=== PATIENT | male | born 1950 | race Caucasian/White ===

== ENCOUNTER → 2017-02-08 | Outpatient (CLI) | payer MEDICARE, OTHER ==
--- NOTE | 2017-02-08 11:11 | US ---
EXAMINATION TYPE: US carotid duplex BILAT DATE OF EXAM: 02/08/2017 COMPARISON: NONE CLINICAL HISTORY: R42 Postural dizziness. EXAM MEASUREMENTS: RIGHT: Peak Systolic Velocity (PSV) cm/sec ----- Right CCA: 74.2 ----- Right ICA: 80.7 ----- Right ECA: 89.9 ICA/CCA ratio: 1.1 RIGHT: End Diastole cm/sec ----- Right CCA: 32.5 ----- Right ICA: 36.4 ----- Right ECA: 23.3 LEFT: Peak Systolic Velocity (PSV) cm/sec ----- Left CCA: 69.8 ----- Left ICA: 76.2 ----- Left ECA: 74.6 ICA/CCA ratio: 1.1 LEFT: End Diastole cm/sec ----- Left CCA: 24.5 ----- Left ICA: 34.8 ----- Left ECA: 16.4 VERTEBRALS (direction of flow): Right Vertebral: Antegrade Left Vertebral: Antegrade Rhythm: Normal small amount calcified plaque bilateral bulbs. No increase in flow velocities. IMPRESSION: 1. Atherosclerotic plaque bilaterally with no significant hemodynamic stenosis identified.
--- NOTE | 2017-02-08 19:16 | ECHOF ---
Referral Reason:R42 Postural dizziness MEASUREMENTS -------- HEIGHT: 182.9 cm WEIGHT: 99.3 kg BP: 109/68 RVIDd: 3.2 cm (< 3.3) IVSd: 1.3 cm (0.6 - 1.1) LVIDd: 4.2 cm (3.9 - 5.3) LVPWd: 1.2 cm (0.6 - 1.1) IVSs: 1.7 cm LVIDs: 3.3 cm LVPWs: 1.7 cm LA Diam: 3.4 cm (2.7 - 3.8) LAESV Index (A-L): 23.95 ml/m Ao Diam: 3.5 cm (2.0 - 3.7) AV Cusp: 2.2 cm (1.5 - 2.6) MV EXCURSION: 15.618 mm (> 18.000) MV EF SLOPE: 43 mm/s (70 - 150) EPSS: 0.6 cm MV E Jose Luis: 0.61 m/s MV DecT: 219 ms MV A Jose Luis: 0.67 m/s MV E/A Ratio: 0.91 FINDINGS -------- Sinus rhythm. This was a technically good study. The left ventricular size is normal. There is mild concentric left ventricular hypertrophy. Overa ll left ventricular systolic function is normal with, an EF between 55 - 60 %. The right ventricle is normal in size. Normal LA size by volume 22+/-6 ml/m2. The right atrium is normal in size. The aortic valve is trileaflet and appears structurally normal. Trace to mild aortic regurgitation. Mild mitral annular calcification present. There is trace mitral regurgitation. The tricuspid valve appears structurally normal. Trace/mild (physiologic) pulmonic regurgitation. The aortic root size is normal. Normal inferior vena cava with normal inspiratory collapse consistent with estimated right atrial pre ssure of 5 mmHg. There is no pericardial effusion. CONCLUSIONS -------- 1. Sinus rhythm. 2. This was a technically good study. 3. The left ventricular size is normal. 4. There is mild concentric left ventricular hypertrophy. 5. Overall left ventricular systolic function is normal with, an EF between 55 - 60 %. 6. The right ventricle is normal in size. 7. Normal LA size by volume 22+/-6 ml/m2. 8. The right atrium is normal in size. 9. The aortic valve is trileaflet and appears structurally normal. 10. Trace to mild aortic regurgitation. 11. Mild mitral annular calcification present. 12. There is trace mitral regurgitation. 13. The tricuspid valve appears structurally normal. 14. Trace/mild (physiologic) pulmonic regurgitation. 15. The aortic root size is normal. 16. Normal inferior vena cava with normal inspiratory collapse consistent with estimated right atrial pressure of 5 mmHg. 17. There is no pericardial effusion. CODING COMPLIANCE AUDITOR: Vickie Gonzalez RDCS
--- NOTE | 2017-02-08 21:50 | EST ---
EXERCISE STRESS AGE: 66 SEX: Male HT: 6 feet WT: 219 PROTOCOL: Baron. STAGE: III DURATION OF EXERCISE: 10 minutes. HEART RATE REST: 64 BLOOD PRESSURE REST: 109/60 mmHg. MAXIMUM HEART RATE ACHIEVED: 139 MAXIMUM BLOOD PRESSURE: 192/86 85% MPHR: 131 100% MPHR: 154 METS: 11.7 INDICATIONS: Dizzy CLINICAL INFORMATION: Baseline 12-lead ECG shows sinus rhythm with normal FL interval, narrow QRS and normal ST segments. Patient exercised on a Baron protocol for 10 minutes, achieving a peak heart rate of 139 beats per minute with normal blood pressure response to exercise. There was no ECG evidence for ischemia. No arrhythmias were noted. The patient denied any cardiac symptoms. He did complain of tired legs at the end of the procedure. IMPRESSION: Good exercise capacity without any ECG evidence of ischemia or arrhythmia. MMODL / IJN: [id number] /
== END | disposition home or self-care (01) ==
LOC: RADUSMAIN 10:24
PROVIDERS: ATTEND Internal Medicine
DX: I08.0 Rheumatic disorders of both mitral and aortic valves (principal); I70.8 Atherosclerosis of other arteries
CPT/HCPCS: 93017; 93306; 93880

== ENCOUNTER → 2021-01-11 | Outpatient (CLI) | payer MEDICARE, OTHER ==
[2021-01-11 14:30] LABS: Basophils # (A) 0.05 X 10*3/uL (0.00-0.10); Basophils % (A) 0.9 %; Eosinophils # (A) 0.16 X 10*3/uL (0.04-0.35); Eosinophils % (A) 2.9 %; HCT 48.3 % (39.6-50.0); HGB 14.9 g/dL (13.0-17.0); Lymphocytes # (A) 2.22 X 10*3/uL (0.90-5.00); Lymphocytes % (A) 40.2 %; MCH 29.4 pg (27.0-32.0); MCHC 30.8 g/dL (32.0-37.0); MCV 95.3 fL (80.0-97.0); Mean Platelet Volume 9.5 fL (9.5-12.2); Monocytes # (A) 0.57 X 10*3/uL (0.20-1.00); Monocytes % (A) 10.3 %; Neutrophils % (A) 45.3 %; Platelet Count 224 X 10*3/uL (140-440); RBC 5.07 X 10*6/uL (4.40-5.60); RDW 13.5 % (11.5-14.5); WBC 5.52 X 10*3/uL (4.50-10.00)
[2021-01-11 15:03] LABS: ALT 32 U/L (10-49); AST 22 U/L (14-35); African American GFR (CKD) 85.9 (60.0-200.0); Albumin 4.6 g/dL (3.8-4.9); Albumin/Globulin Ratio 1.65 (1.60-3.17); Alkaline Phosphatase 75 U/L (41-126); BUN/Creat Ratio 17.75 Ratio (12.00-20.00); Blood Urea Nitrogen 18.1 mg/dL (9.0-27.0); Calcium 9.8 mg/dL (8.7-10.3); Carbon Dioxide 26.4 mmol/L (20.0-27.5); Chloride 103 mmol/L (96-109); Globulin 2.8 g/dL (1.6-3.3); Glucose 83 mg/dL (70-110); Non-African American GFR(CKD) 74.1 (60.0-200.0); Potassium 4.8 mmol/L (3.5-5.5); Sodium 140 mmol/L (135-145); Total Protein 7.3 g/dL (6.2-8.2)
[2021-01-11 16:13] LABS: C Reactive Protein <0.30 mg/dL (0.00-0.80)
[2021-01-11 17:28] LABS: Gliadin AB IgA, Deaminated NEGATIVE (NEGATIVE); Gliadin AB IgA, Unit <0.2 U/mL; Gliadin AB IgG, Deaminated NEGATIVE (NEGATIVE)
[2021-01-11 17:47] LABS: Erythrocyte Sedimentation Rate 6 mm/Hr (0-20)
== END | disposition home or self-care (01) ==
LOC: LABWHC1 09:43
PROVIDERS: ATTEND Nurse Practitioner Family
DX: K52.9 Noninfective gastroenteritis and colitis, unspecified (principal)
CPT/HCPCS: 36415; 80053; 83516; 85025; 85652; 86140

== ENCOUNTER 2021-12-10 09:02 | Day surgery (SDC) | payer MEDICARE, OTHER ==
[2021-12-08 10:56] VITALS: BMI 29.8
[~2021-12-10 09:02] MED LIST: LACTATED RINGERS 1,000 ML IV SCH; LIDOCAINE 1% (10MG/ML) FOR IV START INTRADERMA PRN; ONDANSETRON 4 MG/2 ML VIAL IVP PRN
[2021-12-10 09:29] VITALS: RESP 16; TEMP 97.3
[2021-12-10] MEDS ORDERED: LACTATED RINGERS 1,000 ML IV ONE ×2 (09:35)
[2021-12-10] MEDS ORDERED: LIDOCAINE 2% INJ 20 MG/ML (2 ML VIAL) ONE (10:35)
[2021-12-10] MEDS ORDERED: PROPOFOL 10 MG/ML 20 ML VIAL IV ONE (10:35)
--- NOTE | 2021-12-10 10:54 | P.PCN ---
Date of Procedure: 12/10/21 Procedure(s) Performed: BRIEF HISTORY: Patient is a 71-year-old pleasant white male scheduled for an elective colonoscopy as a part of evaluation of intermittent rectal bleeding for the last 2 weeks' duration. PROCEDURE PERFORMED: Colonoscopysnare with snare polypectomy. PREOPERATIVE DIAGNOSIS: intermittent rectal bleeding. IV sedation per Anesthesia. PROCEDURE: After informed consent was obtained, the patient, was brought into the endoscopy unit. IV sedation was administered by Anesthesia under continuous monitoring. Digital rectal examination was normal. Initially the Olympus CF-160 flexible video colonoscope was then inserted in the rectum, gradually advanced into the cecum without any difficulty. Careful examination was performed as the scope was gradually being withdrawn. Ileocecal valve and the appendiceal orifice were visualized and appeared normal. Prep was excellent. Mucosa of the cecum, appeared normal. Descending colon there was a 1 cm polyp removed by snare polypectomy. Rest of theascending colon, transverse colon, descending colon, sigmoid colon, and rectum appeared normal.scattered sigmoid diverticulosis Retroflexion was performed in the rectum and grade 2 internal hemorrhoids were seen. The patient tolerated the procedure well. IMPRESSION: 1 cm broad-based ascending colon polyp status post polypectomy Moderate similar diverticulosis Grade 2 internal hemorrhoids RECOMMENDATIONS: Findings of this examination were discussed with the patient as well as his family. He was advised to follow with the biopsy results. If the biopsy results adenoma he can have a repeat colonoscopy in 3 years.. 71
[2021-12-10 11:16] VITALS: BP 142/82; PULSE 41
== END 2021-12-10 11:28 | disposition home or self-care (01) ==
LOC: ORWHC2ENDO 09:02
PROVIDERS: ATTEND Internal Medicine Gastroenterology
DX: K63.5 Polyp of colon (principal); K64.1 Second degree hemorrhoids; K57.30 Diverticulosis of large intestine without perforation or abscess without bleeding; K62.5 Hemorrhage of anus and rectum
CPT/HCPCS: 88305; 45385; J2704; J2001

== ENCOUNTER → 2022-12-28 | Outpatient (CLI) | payer MEDICARE, OTHER ==
--- NOTE | 2023-01-06 13:29 | CA ---
Exercise Stress Test Report Name: Rajan Light Exam Date: 12/28/2022 08:57 Exam Location: [facility] Stress Ht (in): 72 Wt (lb): 220 BSA: 2.22 Ordering Phys: GALINDO DUEÑAS Referring Phys: GALINDO DUEÑAS Technologist: CATALINA FLEMING Age: 72 Gender: M : 1950 Procedure CPT: Indications: ICD-10 Codes: Patient History: CHOL Medications: NONE Meds past 24 hrs: Pretest Chest Pain: STRESS TEST Baron Protocol Exercise Duration (min:sec): 10:[address] Depressions (mm): Angina Score: Armstrong Score: Resting HR (bpm): 55 Peak HR (bpm): 127 Resting BP (mmHg): 121 / 79 Peak BP (mmHg): 167 / 67 MPHR: 148 Target HR: 126 % MPHR: 86 METS: 11.7 Total Dose: Peak Dose: Atropine: Double Product: 90407 BP Response: Stress Termination: Reached target heart rate Stress Symptoms: Stress Summary: Patient exercised on Abron protocol for 10 and half minutes achieving 85% of predicted maximal heart rate without chest pain or diagnostic ST segment depression ECG ANALYSIS Resting ECG: Normal sinus rhythm normal axis normal intervals Stress ECG: ST segment depression CONCLUSIONS Good exercise tolerance Negative stress test by EKG criteria Dr. Ryan Ritter MD (Electronically Signed) Final Date: 28 December 2022 10:57
== END | disposition home or self-care (01) ==
LOC: RADNMMAIN 08:04
PROVIDERS: ATTEND Family Medicine
DX: Z91.89 Other specified personal risk factors, not elsewhere classified (principal); E78.00 Pure hypercholesterolemia, unspecified
CPT/HCPCS: 93017